=== PATIENT | female | born 1960 | race Caucasian/White ===

== ENCOUNTER → 2017-02-08 | Outpatient (CLI) | payer OTHER ==
[~2017-02-08] VITALS: Ht 162.6 cm; Wt 142.7 kg
[~2017-02-08] MED LIST: ASPIR 8181 M1 PO; BACTRIM,SEPT1 TABLET PO; CEFTIN250 MG PO; CELEXA10 MG PO; CELEXA20 MG PO; GLUCOPHAGE500 MG PO; Keflex PO; LO-DOSE ASPIRIN81 M1 PO; LOVENOX40 MG/0.4 SC; MAGNESIUM OXID200 MG PO; NIACIN1000 MG PO; PERCOCET 5/31 TABLET PO; PREDNISONE10 MG PO; PULMICORT FLE180 MCG IH; Percocet 5/325,Endoc PO; SIMVASTATIN40 MG PO; TYLENOL EXTRA500 MG PO; ULTRAM50 MG PO; VENTOLIN HFA18 GM IH; VICODIN 5-3001 EACH PO; VITAMIN D-32000 UNI1 PO; VITAMIN D32000 UNI1 PO; ZOFRAN ODT4 MG PO; Zocor PO
[2017-02-08 11:46] LABS: POINT-OF-CARE METER ID UU13113694
[2017-02-08 12:35] LABS: ANION GAP 11 MEQ/L (2-14); CHLORIDE 103 MEQ/L (99-109); GFR ESTIMATE (CALCULATED) > 59 mL/min/; GLUCOSE 97 mg/dL (70-99); POTASSIUM 4.2 MEQ/L (3.7-5.4); SAMPLE HEMOLYSIS CHECK 0; SAMPLE ICTERIC CHECK 0; SAMPLE LIPEMIA CHECK 0; SODIUM 141 MEQ/L (136-147); UREA NITROGEN (BUN) 10 mg/dL (9-23)
== END | disposition home or self-care (01) ==
LOC: AMB 11:08
PROVIDERS: Anesthesiology; Internal Medicine Gastroenterology
DX: Z12.11 Encounter for screening for malignant neoplasm of colon (principal); Z80.0 Family history of malignant neoplasm of digestive organs; D12.2 Benign neoplasm of ascending colon; D12.4 Benign neoplasm of descending colon; K57.30 Diverticulosis of large intestine without perforation or abscess without bleeding; E11.9 Type 2 diabetes mellitus without complications; E78.2 Mixed hyperlipidemia; I35.0 Nonrheumatic aortic (valve) stenosis; E66.01 Morbid (severe) obesity due to excess calories; Z68.43 Body mass index [BMI] 50.0-59.9, adult
CPT/HCPCS: 80048; 82948; 88305; J2250

== ENCOUNTER 2017-11-05 10:35 | Emergency (ER) | payer OTHER ==
[~2017-11-05] VITALS: Ht 160 cm; Wt 140.0 kg
[2017-11-05 16:33] VITALS: BP 123/87
== END 2017-11-05 16:34 | disposition home or self-care (01) ==
LOC: EME 10:35
DX: I10 Essential (primary) hypertension (principal); E78.5 Hyperlipidemia, unspecified; Z87.442 Personal history of urinary calculi; F32.9 Major depressive disorder, single episode, unspecified; E11.9 Type 2 diabetes mellitus without complications; E55.9 Vitamin D deficiency, unspecified; E66.01 Morbid (severe) obesity due to excess calories; Z68.43 Body mass index [BMI] 50.0-59.9, adult; G56.00 Carpal tunnel syndrome, unspecified upper limb; J45.909 Unspecified asthma, uncomplicated; Z79.84 Long term (current) use of oral hypoglycemic drugs; Z79.82 Long term (current) use of aspirin; Z88.0 Allergy status to penicillin; Z88.8 Allergy status to other drugs, medicaments and biological substances
CPT/HCPCS: 99281; 99284